=== PATIENT | female | born 1955 | race Caucasian/White ===

== ENCOUNTER 2019-03-20 08:39 | Emergency (ER) | payer MEDICARE, MEDICAID ==
[~2019-03-20] VITALS: Ht 162.6 cm; Wt 52.3 kg
[~2019-03-20 08:39] MED LIST: ALBU8.5H8 INH; ALPR0.25 PO; AZIT500T10 PO; BUSP10TA PO; CARI350T PO; CITA40TA12 PO; CITA40TA5 PO; DIGO125T PO; DIGO250T12 PO; DOXY100T PO; FLUT1DIS3 INH; GABA300C10 PO; LAMO150T2 PO; LAMO150T3 PO; LATA2.5D3 EACHEYE; LORA1TAB PO; ONDA4TAB7 PO; OXYC10TA6 PO; OXYCODONE; THYR30TA PO; TOPI100T8 PO; TOPI50TA8 PO
--- NOTE | 2019-03-20 08:47 | NUR ---
BIB [facility] FOR C/O LBP WORSENED OVER THE LAST FEW DAYS. PT WAS UNABLE TO GET OOB TODAY SECONDARY TO IT. DENIES RECENT FALLS/TRAUMA/INJURY. PT GIVEN 4 MG ZOFRAN AND 200 MCG FENTANYL W/ SOME RELIEF. VS UNIFORM FORCE CAPTAIN HR 60, BP 140/70. PT RESTING ON GURNEY. STATES "THE MEDICATION MADE ME MORE LOOPY THAN IT DID HELPING WITH THE PAIN". PT NOTED TO BE TALKING SLOWER. NEURO INTACT. WARM BLANKET PROVIDED. MONITORS APPLIED. PT EDUCATED NOT TO ATTEMPT TO GET OOB W/O ASSISTANCE. PT VERBALIZES UNDERSTANDING. CALL LIGHT IN REACH.
[2019-03-20] MEDS ORDERED: METHOCARBAMOL 750 MG TABLET ONE (09:26)
[2019-03-20] MEDS ORDERED: KETOROLAC 30 MG/1 ML ONE (09:26)
[2019-03-20] MEDS ORDERED: KETOROLAC 30 MG/1 ML IVPush ONE (09:30)
[2019-03-20] MEDS ORDERED: MORPHINE SULFATE 4 MG/ML, 1ML IVPush PRN (09:30)
[2019-03-20] MEDS ORDERED: METHOCARBAMOL 750 MG TABLET PO ONE (09:30)
--- NOTE | 2019-03-20 09:43 | NUR ---
PT TO AND FROM XR IN STABLE CONDITION. PT RESTING ON ALEKSRKIRTI. KADEN. VSS. MEDICATED PER MAY.
[2019-03-20 10:24] LABS: MICROSCOPIC AUTO
[2019-03-20 10:26] LABS: CULTURE INDICATED? YES
[2019-03-20 10:33] LABS: BASOPHILS # (AUTO) 0.05 x10^3/uL (0-0.1); BASOPHILS % (AUTO) 1 % (0-1); EOSINOPHILS # (AUTO) 0.23 x10^3/uL (0-0.4); EOSINOPHILS % (AUTO) 4 % (1-7); LYMPHOCYTES % (AUTO) 30 % (22-44); MD NO; MEAN CORPUSCULAR HEMOGLOBIN 32.5 pg (27.0-34.8); MEAN CORPUSCULAR VOLUME 98.6 fL (80-100); MEAN PLATELET VOLUME 7.2 fL (7.4-10.4); MONOCYTES # (AUTO) 0.48 x10^3/uL (0.2-0.8); MONOCYTES % (AUTO) 8 % (2-9); NEUTROPHILS # (AUTO) 3.31 x10^3/uL (1.8-6.8); NEUTROPHILS % (AUTO) 57 % (42-75); PLATELET COUNT 263 x10^3/uL (130-400); RED BLOOD COUNT 3.84 x10^6/uL (3.82-5.3); RED CELL DISTRIBUTION WIDTH 13.1 % (9.6-15.2)
--- NOTE | 2019-03-20 10:44 | NUR ---
PT RESTING ON GURKIRTI. AMBER. VSS. PT STATES BACK PAIN BACK TO BASELINE. PT ABLE TO AMBULATE TO RESTROOM W/ ASSISTANCE BY THIS RN.
[2019-03-20 10:45] LABS: CALCIUM 9.4 mg/dL (8.5-10.1); CREATININE 0.84 mg/dL (0.55-1.02)
[2019-03-20 10:55] LABS: ANION GAP 5 mmol/L (5-15); CHLORIDE 115 mmol/L (98-107)
[2019-03-20 11:28] VITALS: BP 112/73
== END 2019-03-20 12:09 | disposition home or self-care (01) ==
LOC: ED 11:30
DX: M54.5 Low back pain (principal); J44.9 Chronic obstructive pulmonary disease, unspecified; I48.91 Unspecified atrial fibrillation; G43.909 Migraine, unspecified, not intractable, without status migrainosus
CPT/HCPCS: 36415; 72110; 80048; 81001; 82040; 85025; 87086; 96374; 99284; J1885

== ENCOUNTER 2020-11-25 09:49 | Outpatient (CLI) | payer MEDICARE, MEDICAID ==
[~2020-11-25 09:49] MED LIST changes: -DIGO125T PO; +DIGO125T85 PO; -LAMO150T2 PO; +LAMO150T4 PO; -LATA2.5D3 EACHEYE; +LATA2.5D4 EACHEYE
== END 2020-11-25 23:59 | disposition home or self-care (01) ==
LOC: CFH 09:49 → RAD 23:59
PROVIDERS: ATTEND Family Medicine
DX: Z12.2 Encounter for screening for malignant neoplasm of respiratory organs (principal); M18.0 Bilateral primary osteoarthritis of first carpometacarpal joints; R91.8 Other nonspecific abnormal finding of lung field; M50.121 Cervical disc disorder at C4-C5 level with radiculopathy; M48.02 Spinal stenosis, cervical region; J98.4 Other disorders of lung; J43.9 Emphysema, unspecified; M25.549 Pain in joints of unspecified hand; Z87.891 Personal history of nicotine dependence
CPT/HCPCS: 71271; 72125

== ENCOUNTER 2020-12-03 10:40 | Outpatient (CLI) | payer MEDICARE, MEDICAID ==
[2020-12-03 11:04] LABS: BASOPHILS % (AUTO) 1 % (0-1); EOSINOPHILS % (AUTO) 5 % (1-7); LYMPHOCYTES % (AUTO) 45 % (22-44); MEAN CORPUSCULAR HEMOGLOBIN 31.8 pg (27.0-34.8); MEAN CORPUSCULAR HGB CONC 33.2 g/dL (32.4-35.8); MEAN PLATELET VOLUME 6.9 fL (7.4-10.4); MONOCYTES % (AUTO) 8 % (2-9); NEUTROPHILS % (AUTO) 42 % (42-75); PLATELET COUNT 246 x10^3/uL (130-400); RED CELL DISTRIBUTION WIDTH 13.6 % (9.6-15.2)
[2020-12-03 11:18] LABS: CHOL/HDL RATIO 5.7; LDL/HDL RATIO 2.9 (0.5-3.0)
[2020-12-03 17:28] LABS: ALANINE AMINOTRANSFERASE 29 U/L (12-78); ALBUMIN 3.7 g/dL (3.4-5.0); ANION GAP 4 mmol/L (5-15); CALCIUM 9.2 mg/dL (8.5-10.1); CHLORIDE 108 mmol/L (98-107)
[2020-12-03 17:31] LABS: ALKALINE PHOSPHATASE 63 U/L (45-117); BILIRUBIN,TOTAL 0.5 mg/dL (0.2-1.0); CREATININE 0.94 mg/dL (0.55-1.02); TOTAL PROTEIN 7.4 g/dL (6.4-8.2)
== END 2020-12-03 23:59 | disposition home or self-care (01) ==
LOC: LAB 10:40
PROVIDERS: ATTEND Physician Assistant
DX: Z00.01 Encounter for general adult medical examination with abnormal findings (principal); R53.83 Other fatigue; E78.2 Mixed hyperlipidemia; Z79.899 Other long term (current) drug therapy
CPT/HCPCS: 36415; 80053; 80061; 83036; 84443; 85025; 86803